=== PATIENT | male | born 1980 | race Caucasian/White ===

== ENCOUNTER 2017-04-18 11:40 | Emergency (ER) | payer OTHER ==
[~2017-04-18] VITALS: Ht 177.8 cm; Wt 70.3 kg
[2017-04-18 11:47] VITALS: BP 141/74
--- NOTE | 2017-04-18 11:52 | NUR ---
XRAY AT BS
--- NOTE | 2017-04-18 12:35 | NUR ---
PT DC, STABLE- OK TO BOOK.
== END 2017-04-18 12:37 ==
LOC: ER 11:42
DX: F19.10 Other psychoactive substance abuse, uncomplicated (principal)
CPT/HCPCS: 71045; 99283; A4606; Z7610